=== PATIENT | male | born 1950 | race Caucasian/White ===

== ENCOUNTER 2018-11-13 02:28 | Emergency (ER) | payer MEDICARE ==
[~2018-11-13] VITALS: Ht 177.8 cm; Wt 95.2 kg
[~2018-11-13 02:28] MED LIST: ALBU90OI6; ATOR20; FLUSAL2505; MELO7.5 PO
== END 2018-11-13 03:27 | disposition home or self-care (01) ==
LOC: ER 02:28
DX: L23.7 Allergic contact dermatitis due to plants, except food (principal); Z79.899 Other long term (current) drug therapy
CPT/HCPCS: 96372; 99283-25; J3301; J7512